=== PATIENT | female | born 1940 | race Caucasian/White ===

== ENCOUNTER 2018-11-10 09:51 | Inpatient (IN) ==
[2018-11-10] MEDS ORDERED: ASPIRIN PO ONE (10:00)
--- NOTE | 2018-11-10 10:10 | EKG Report ---
Test Performed on : 11/10/2018 09:59:53 AM Test Reason : chest pain Blood Pressure : / mmHG Vent. Rate : 067 BPM Atrial Rate : 067 BPM P-R Int : 162 ms QRS Dur : 086 ms QT Int : 398 ms P-R-T Axes : 018 017 048 degrees QTc Int : 420 ms Normal sinus rhythm. Normal ECG When compared with ECG of 06-AUG-2018 11:36, No significant change was found Unconfirmed Result
[2018-11-10 10:37] LABS: BASO# 0.11 X1000 (0.0-0.2); BASO% 1.2 % (0.0-0.8); EOS# 0.18 X1000 (0.0-0.7); EOS% 1.9 % (0.0-10.0); HEMATOCRIT 40.9 % (37.0-47.0); HEMOGLOBIN 13.6 g/dL (12.0-16.0); IMM GRAN# 0.02 X1000 (0.0-0.04); IMM GRAN% 0.2 % (0.0-0.5); LYMPH# 2.12 X1000 (1.2-3.4); LYMPH% 22.7 % (20.5-51.1); MCH 31.3 PG (27-31); MCHC 33.3 g/dL (33-37); MONO# 0.71 X1000 (0.11-0.59); MONO% 7.6 % (1.7-9.3); MPV 9.7 FL (7.4-10.4); NEUT# 6.19 X1000 (1.4-6.5); NEUT% 66.4 % (42.2-75.2); PLT 374 X1000 (130-400); RBC 4.35 XMIL (4.2-5.4); RDW 13.6 % (11.5-14.5); WBC 9.33 X1000 (4.8-10.8)
--- NOTE | 2018-11-10 10:38 | Diag Imaging Result Doc PS360 ---
CHEST-2 VIEWS - 11/10/2018 INDICATION: chest pain COMPARISON: 08/06/2018 FINDINGS: The lungs are normally expanded and clear. Heart size and mediastinal contours are normal. No pneumothorax or pleural effusion. There is a stable high-grade compression fracture at L1. IMPRESSION: No change from prior. Electronically signed by Abdiel Angel 11/10/2018 10:35 AM
[2018-11-10 10:40] LABS: INR 0.91
[2018-11-10 10:41] LABS: PTT 30.7 Seconds (22.3-41.8)
[2018-11-10 10:49] LABS: AGAP 10; ALB/GLOB RATIO 1.4; ALBUMIN 4.1 g/dL (3.5-5.0); ALKALINE PHOSPHATASE 81 U/L (32-104); BUN 20 mg/dL (8-22); CALCIUM 9.3 mg/dL (8.8-10.2); CHLORIDE 103 mmol/L (98-107); CK PROFILE 76 U/L (24-173); COSMO 286; CREATININE 0.7 mg/dL (0.5-0.9); ESTIMATED GFR > 60; GLUCOSE 100 mg/dL (70-104); GOT 17 U/L (10-30); GPT 13 U/L (10-36); POTASSIUM 4.6 mmol/L (3.5-5.1); SODIUM 142 mmol/L (136-145); TCO2 29 mmol/L (25-35); TOTAL BILIRUBIN 0.16 mg/dL (0.20-1.00)
[2018-11-10] MEDS ORDERED: ZOFRAN IV PRN (12:05)
--- NOTE | 2018-11-10 14:47 | HISTORY AND PHYSICAL ---
CHIEF COMPLAINT: Chest pain. HISTORY OF PRESENT ILLNESS: This is a 78-year-old female with a history of hypertension, gastroesophageal reflux disease, chronic back pain, and anxiety. She presented to the emergency room from her primary care provider Dr. Dash's office. The patient states that she was awaiting evaluation for routine appointment, and she had a "terrible headache." Shortly after, she felt anxious, she felt some like something was sitting on her chest. She noticed her respiratory rate was up. She got a little nauseated. At one time, she said she had diaphoresis, and another time during interview ,she stated that she did not . She states, " I have these spells when Im nervous and it depends on how nervous I am as to how long the spell lasts" . At the time of my interview, symptoms have resolved, and she feels that she is at her normal. PAST MEDICAL HISTORY: Gastroesophageal reflux disease, hypertension, anxiety, chronic back pain on chronic benzodiazepines, a left parietal meningioma that is being followed by Dr. Marshall in [place]. PAST SURGICAL HISTORY: Bladder tack, rectal prolapse repair, breast implants bilateral, hernia repair, hysterectomy, and colon resection. SOCIAL HISTORY: She smokes about half a pack a day. She denies alcohol or illicit drug use. ALLERGIES: No known drug allergies. HOME MEDICATIONS: A list will be obtained by the nursing staff, and once verified, we will review and restart as appropriate. REVIEW OF SYSTEMS: Discussed with patient with pertinent positives stated in the HPI. She denied any syncope or dizziness, any palpitations, any cough, fever, chills, night sweats, any recent weight loss or weight gain, any nausea/vomiting, diarrhea, constipation, any black or bloody vomitus or stools, hematuria, dysuria, frequency, urgency. PHYSICAL EXAMINATION: GENERAL: This is a 78-year-old female who is lying on the stretcher in the emergency room in no distress. VITAL SIGNS: Blood pressure is 128/69, heart rate of 70, respirations are 18, temperature is 97.6 degrees oral with room air saturations of 98%. EYES: Pupils are equal, round, and react to light .EOMs are intact. Sclerae are anicteric. HEENT: Head is normocephalic, atraumatic. Mucous membranes are moist. NECK: Supple with trachea midline. CARDIOVASCULAR: Regular rate and rhythm. S1 and S2 appreciated. No murmurs. EXTREMITIES: She has no lower extremity edema. Calves are nontender bilateral to palpation and peripheral pulses are palpable x4 extremities. PULMONARY: Breath sounds are clear with no increased work of breathing noted. Chest rises and falls symmetrically with respiration. Chest wall is nontender to palpation. GASTROINTESTINAL: Abdomen is soft, nontender, nondistended with bowel sounds in all 4 quadrants. GENITOURINARY: She has no CVA nor suprapubic tenderness. NEUROLOGIC: She is alert and oriented x3 with cranial nerves 2 through 12 grossly intact. SKIN: Warm and dry. DIAGNOSTIC STUDIES: WBC is 9.3 with hemoglobin 13.6, hematocrit 40.9, platelets of 374,000. Sodium is 142, potassium 4.6, BUN 20, creatinine 0.7 with a glucose of 100. Troponin was less than 0.010. EKG reveals normal sinus rhythm at a rate of [address]-T changes. Chest x-ray revealed lungs are normally expanded and clear. Heart size and mediastinal contours are normal. No pneumothorax or pleural effusion. There is a stable high-grade compression fracture at L1. ASSESSMENT AND PLAN: 1. Chest pressure. First troponin is negative. EKG is normal. We will continue to trend troponins, repeat EKGs, and rule out. She will be placed on telemetry. 2. Anxiety. We will identify her medications and continue these if appropriate. 3. Chronic back pain. She states she takes ibuprofen and gabapentin every 4 hours. We will verify her doses and continue as appropriate. 4. Gastroesophageal reflux disease. PPI. 5. Hypertension. Continue her home medications. 6. Left parietal meningioma with her last MRI being July 2018. She is being followed by Dr. Marshall in [place]. Further treatments pending hospital course. Dictated by CHEYENNE Land for Brenton Dubose MD cc: CHEYENNE Land Agree with the above. the following is my own face to face assessment. Patient with multiple episodes of anxiety, chest discomfort, and heart racing. initial cardiac eval unremarkable and symptoms consistent with panic attacks, but does endorse occasional palpitations. regular rate and rhythm at the time of my exam. will finish ruling out ACS with serial troponins. check thyroid studies. monitor on tele overnight in case she is going in and out of afib/flutter. likely discharge tomorrow if cardiac workup unremarkable. MTDD
[2018-11-10] MEDS ORDERED: MOTRIN PO PRN (15:34)
[2018-11-10] MEDS: ULTRAM PO PRN (15:42)
[2018-11-10 15:44] LABS: FREE T4 0.95 ng/dL (0.93-1.70); TSH 2.47 uIUmL (0.27-4.20)
[2018-11-10] MEDS: NS 1,000 ML IV SCH (15:46)
[2018-11-10] MEDS ORDERED: AMBIEN PO PRN (16:21)
[2018-11-10] MEDS ORDERED: TENORMIN PO PRN (16:21)
[2018-11-10] MEDS: NEURONTIN PO SCH ×2 (16:35→21:31)
[2018-11-10] MEDS ORDERED: PNEUMOVAX 23 IM ONE (17:30)
[2018-11-10 20:59] LABS: URINE SOURCE CLEAN CATCH
[2018-11-10 21:04] LABS: BILIRUBIN URINE NEGATIVE (NEGATIVE); BLOOD URINE TRACE (NEGATIVE); COLOR YELLOW; GLUCOSE URINE NEGATIVE (NEGATIVE); KETONE URINE NEGATIVE (NEGATIVE); LEUKOCYTES URINE LARGE (NEGATIVE); NITRITE URINE POSITIVE (NEGATIVE); PROTEIN URINE 30 mg/dL (NEGATIVE); TURBIDITY URINE HAZY (CLEAR); UR EPITHELIAL CELLS <10 /HPF (<10); URINE BACTERIA 4+ /HPF; URINE RBC <10 /HPF (<10); URINE WBC TNTC /HPF (<10); UROBILINOGEN URINE NORMAL (NORMAL)
[2018-11-10] MEDS: KLONOPIN PO SCH (21:31)
[2018-11-10] MEDS: ELAVIL PO SCH (21:32)
[2018-11-11] MEDS: ULTRAM PO PRN ×2 (03:34→08:09)
[2018-11-11] MEDS: NS 1,000 ML IV SCH ×2 (03:34→03:35)
[2018-11-11 07:02] LABS: BASO# 0.09 X1000 (0.0-0.2); BASO% 1.1 % (0.0-0.8); EOS# 0.37 X1000 (0.0-0.7); EOS% 4.3 % (0.0-10.0); HEMATOCRIT 42.3 % (37.0-47.0); HEMOGLOBIN 13.8 g/dL (12.0-16.0); IMM GRAN# 0.02 X1000 (0.0-0.04); IMM GRAN% 0.2 % (0.0-0.5); LYMPH# 2.33 X1000 (1.2-3.4); LYMPH% 27.2 % (20.5-51.1); MCH 31.1 PG (27-31); MCHC 32.6 g/dL (33-37); MCV 95.3 FL (81-99); MONO# 0.65 X1000 (0.11-0.59); MONO% 7.6 % (1.7-9.3); MPV 9.6 FL (7.4-10.4); NEUT# 5.11 X1000 (1.4-6.5); NEUT% 59.6 % (42.2-75.2); PLT 349 X1000 (130-400); RBC 4.44 XMIL (4.2-5.4); RDW 13.6 % (11.5-14.5); WBC 8.57 X1000 (4.8-10.8)
[2018-11-11 07:29] VITALS: BP 141/88
[2018-11-11] MEDS: ELAVIL PO SCH (08:07)
[2018-11-11] MEDS: KLONOPIN PO SCH (08:08)
[2018-11-11] MEDS: NEURONTIN PO SCH (08:08)
[2018-11-11 08:11] LABS: AGAP 9; ALB/GLOB RATIO 1.2; ALBUMIN 3.7 g/dL (3.5-5.0); ALKALINE PHOSPHATASE 76 U/L (32-104); BUN 19 mg/dL (8-22); CALCIUM 8.6 mg/dL (8.8-10.2); CHLORIDE 105 mmol/L (98-107); COSMO 283; CREATININE 0.5 mg/dL (0.5-0.9); ESTIMATED GFR > 60; GLUCOSE 123 mg/dL (70-104); GOT 15 U/L (10-30); GPT 12 U/L (10-36); POTASSIUM 3.7 mmol/L (3.5-5.1); SODIUM 140 mmol/L (136-145); TCO2 26 mmol/L (25-35); TOTAL BILIRUBIN 0.18 mg/dL (0.20-1.00); TOTAL PROTEIN 6.7 g/dL (6.3-8.3)
[2018-11-11] MEDS ORDERED: ZOLOFT PO SCH (09:00)
--- NOTE | 2018-11-12 06:19 | DISCHARGE SUMMARY ---
ADMISSION DATE: 11/10/2018 DISCHARGE DATE: 11/11/2018 DISCHARGE DISPOSITION: Home. DISCHARGE DIAGNOSES: 1. Panic attack. 2. Asymptomatic bacteriuria. 3. Anxiety. 4. Subjective feeling of shortness of breath and chest pain with headache on admission, likely because of anxiety. OTHER DIAGNOSES: 1. History of essential hypertension. 2. History of chronic gastroesophageal reflux disease. 3. History of chronic back pain. 4. History of anxiety and previous episode of panic attack. 5. History of left parietal meningioma followed by [facility]. VITALS: At the time of discharge temperature 98.1 degrees, pulse 79, respiratory rate 16, blood pressure 140/88, saturating 93% on room air. PHYSICAL EXAMINATION: General: Patient does not appear in any acute distress. HEENT: Oral cavity is moist. Chest: Air entry bilaterally equal. No wheeze, rhonchi, crackles. Cardiovascular: S1, S2 normal. No murmur or gallop. Bedside monitor has normal sinus rhythm. Abdomen: Soft, nontender. Extremities: No lower extremity edema. Neurologic: She is alert and oriented x3. Skin: She does have facial erythema from prior cosmetic surgery over her face. Psych: She does not appear anxious. She denies any more chest pain or shortness of breath or palpitation or diaphoresis or headache. SIGNIFICANT LABS: During hospitalization, her hemoglobin, hematocrit, blood count, WBC count and platelet have been within normal range. Coagulation, including INR and PTT, were within normal range. She had normal electrolytes with creatinine of 0.7, BUN of 20. Her troponin is an less than 0.010 three times. Her thyroid, including TSH, was within acceptable range. She does have pyuria with positive nitrites and large leukocytes. However, she did not have any symptoms of increased frequency or burning when I evaluated her. MICROBIOLOGY: Urine culture was pending significant. IMAGING: During hospital admission, chest x-ray did not have any pneumothorax or pleural effusion. There was compression fracture at L1 vertebra. EKG on admission had normal sinus rhythm. DISCHARGE MEDICATIONS: Zolpidem 10 mg at nighttime, desloratadine 5 mg daily, amitriptyline 75 mg b.i.d., cyclobenzaprine 10 mg daily, gabapentin 600 mg 4 times a day, clonazepam 1 mg b.i.d., ibuprofen 400 mg every 4 hours as needed, promethazine 25 mg p.o. q.6 hours as needed, atenolol 25 mg p.o. daily, sertraline 100 mg daily, Benadryl 25 mg q.4 to q.6 hours as needed for itching, tramadol 50 mg q.6 hours p.r.n. as needed for pain. HOSPITAL COURSE SUMMARY: Ms. Pool is a 78-year-old lady with past medical history of anxiety and chronic GERD who was in her primary care doctor's office for routine appointment. At that time, she started complaining of terrible headache and, after that, she had started feeling anxious and she felt that something was sitting on her chest and it was noted that her respiratory rate had also increased and she was a little nauseous. Though she did not have prior history of coronary artery disease, considering she has had these spells in the past associated with her anxiety, she was sent to emergency room. In the emergency room her vitals and blood tests were unremarkable. She was kept in the hospital overnight for telemetry monitoring. Her EKG and cardiac troponins were with normal sinus rhythm and were negative respectively. She did not have repetition of any such episodes overnight. At the time of discharge, she did not have headache, diaphoresis, palpitations or chest pain and she was deemed appropriate for discharge. At the time of discharge, she was provided instructions about panic attack. She was informed that her cardiac workup preliminarily was negative and she should follow up with the regular doctor. She was also advised to discuss with the regular doctor about proper medication reconciliation and discussed about medication interaction. All of her questions have been answered. TIME SPENT: More than 30 minutes were spent in discharging the patient. cc: Keron Saxena MD
--- NOTE | 2018-11-15 11:07 | PROVIDER DOCUMENTATION ---
This chart was entered by Staci Gerardo Scribe, acting as scribe for Yasir Noland MD. HPI-Chest Pain - General Chief Complaint: Chest Pain Stated Complaint: CHEST PAIN Time Seen by Provider: 11/10/18 10:04 Source: patient Allergies/Adverse Reactions: Patient Allergies Allergy/AdvReac Type Severity Reaction Status Date / Time No Known Allergies Allergy Verified 03/21/18 03:09 Home Medications: Home Medication List Medication Instructions Recorded Confirmed Last Taken Type Amitriptyline [Elavil] 75 mg PO BID 06/21/13 11/10/18 11/10/18 09:00 History Desloratadine [Clarinex] 5 mg PO DAILY 06/21/13 11/10/18 11/10/18 09:00 History Atenolol [Tenormin] 25 mg PO DAILY PRN 06/27/13 11/10/18 11/10/18 09:00 History Clonazepam [Klonopin] 1 mg PO BID 06/27/13 11/10/18 11/10/18 09:00 History Cyclobenzaprine HCl [Flexeril] 10 mg PO DAILY 06/27/13 11/10/18 11/10/18 09:00 History Sertraline HCl [Zoloft] 100 mg PO DAILY 06/27/13 11/10/18 11/10/18 09:00 History Diphenhydramine [Benadryl] 25 mg PO Q4-6H PRN PRN #0 capsule 06/28/13 11/10/18 11/10/18 09:00 Rx Promethazine [Phenergan] 25 mg PO Q6H PRN PRN 10/28/13 11/10/18 03/20/18 History Zolpidem [Ambien] 10 mg PO HS 10/28/13 11/10/18 11/09/18 21:00 History Tramadol [Ultram] 50 mg PO Q6H PRN PRN #14 tab 03/21/18 11/10/18 Unknown Rx Gabapentin 600 mg PO 4XDAY 11/10/18 11/10/18 11/10/18 09:00 History Ibuprofen [Motrin] 400 mg PO Q4H PRN PRN 11/10/18 11/10/18 11/10/18 09:00 History - History of Present Illness-CP Nature of Presenting Problem: Patient is a 78 year old female who presents to the ED with chest pain, shortness of breath, and headache that started this morning while at her PCP's office. Denies nausea, vomiting and fever. Reports having prior episodes of similar symptoms. Patient states shortness of breath has resolved currently. Patient does not report history of CVA. Patient also does not report weakness, numbness or paresthesia. Location: reports: central Chest Pain Radiation: reports: no radiation Quality of Pain: reports: aching Severity in ED: mild Onset/Duration: this morning Timing: still present Context/Activities at Onset: reports: light activity Modifying Factors: improves with: nothing Associated Symptoms: reports: headache, shortness of breath Nitro Today/Relief: no nitro taken today Aspirin Treatment Today: no aspirin today Similar Symptoms Previously?: Yes Recently Seen Here or By Another Healthcare Provider: Yes Review of Systems - Adult - REVIEW OF SYSTEMS - ADULT Constitutional: reports: no symptoms reported. denies: chills, fever, fatique Eyes: reports: no symptoms reported Ears, Nose, Mouth & Throat: reports: no symptoms reported Cardiovascular: reports: see HPI, chest pain. denies: heart murmur, irregular heart rate Respiratory: reports: see HPI, cough. denies: shortness of breath, wheezing Gastrointestinal: reports: no symptoms reported. denies: abdominal pain, nausea, vomiting Genitourinary: reports: no symptoms reported Musculoskeletal: reports: no symptoms reported Integumentary: reports: no symptoms reported Neurological: reports: see HPI, headache/migraines (ECKERT). denies: dizziness/vertigo, numbness, seizure, syncope Psychiatric: reports: no symptoms reported Endocrine: reports: no symptoms reported Hematologic/Lymphatic: reports: no symptoms reported Allergic/Immunologic: reports: no symptoms reported All Other Systems: Reviewed and Negative Past History - Adult - PAST MEDICAL HISTORY-ADULT Review of Records: reports: Nursing Assessment Review, Medications Reviewed, Social history reviewed & non-contributory. Major Childhood Illnesses: reports: denies history Cardiovascular: reports: HTN, hyperlipidemia Respiratory: reports: denies history Gastrointestinal: reports: GERD Obstetrical/Gynecological: reports: denies history Genitourinary: reports: denies history Musculoskeletal: reports: denies history Neurological: reports: denies history Psychiatric: reports: anxiety Endocrine/Immune: reports: denies history Other Conditions: reports: denies history - PRIOR SURGERIES/PROCEDURES Surgical/Procedure History: reports: hysterectomy, hernia repair, breast, other (bladder) - IMMUNIZATION STATUS Childhood Immunizations: See Nurse Assessment Flu Vaccine: See Nurse Assessment - FAMILY HISTORY Family History: reviewed, not pertinent - SOCIAL HISTORY Smoking: cigarettes, less than 1 pack/day Provider spent 3-5 mins advising pt. on dangers of tobacco.: Discussed manners to quit use, and f/u contacts for add'l counseling. Substance Use: denies Living Situation: family Physical Exam-General - PHYSICAL EXAM-ADULT Initial Vital Signs Reviewed: Yes - CONSTITUTIONAL General Appearance: alert, no apparent distress. negative: lethargic, slow to respond - RESPIRATORY Respiratory: chest non-tender, lungs clear, normal breath sounds. negative: crackles, stridor - CARDIOVASCULAR Cardiovascular: normal peripheral pulses, regular rate, rhythm. negative: tachycardia, systolic murmur - MUSCULOSKELETAL Extremity: non-tender, normal inspection. negative: deformity, erythema - SKIN Integumentary: normal color, normal turgor, warm/dry. negative: ecchymosis, erythema - NEUROLOGIC Neurologic: facial droop (left), motor weakness (LUE and LLE) - PSYCHIATRIC Psych/Mental Status: normal mood/affect, oriented x 3 Progress - PLAN OF CARE/RESULTS Progress/Plan/Lab Results: Orders Category Date Time Status Admit [facility] Routine AdmDCTranf 11/10/18 11:54 Active Activity - Bed Rest with BRP ORDERED Care 11/10/18 11:54 Active Cardiac Monitoring DIRECTED Care 11/10/18 10:00 Completed Intake and Output-Strict ORDERED Care 11/10/18 11:54 Active Oxygen Therapy- ED Nursing DIRECTED Care 11/10/18 10:00 Active Saline Loc NOW Care 11/10/18 10:00 Active Vital Signs Order Q 8-HR ASSESS Care 11/10/18 11:54 Active Z-Document. for Tele Applied ORDERED Care 11/10/18 11:55 Completed Regular Diet Diet 11/10/18 11:55 Completed CHEST-2 VIEWS [RAD] Stat Exams 11/10/18 10:00 Completed CBC WITH DIFF [HEME] Routine Lab 11/11/18 06:24 Completed CBC WITH ELECTRONIC DIFF [HEME] Stat Lab 11/10/18 10:23 Completed CK PROFILE [SP CHEM] Q6H Lab 11/10/18 16:04 Completed CK PROFILE [SP CHEM] Q6H Lab 11/10/18 23:20 Completed CK PROFILE [SP CHEM] Stat Lab 11/10/18 10:23 Completed COMPREHENSIVE METABOLIC PANEL [CHEM] Routine Lab 11/11/18 06:24 Completed COMPREHENSIVE METABOLIC PANEL [CHEM] Stat Lab 11/10/18 10:23 Completed PRO B-NATRIURETIC PEPTIDE Stat Lab 11/10/18 10:23 Completed PROTIME WITH INR [COAG] Stat Lab 11/10/18 10:23 Completed PTT [COAG] Stat Lab 11/10/18 10:23 Completed TROPONIN T Q6H Lab 11/10/18 16:04 Completed TROPONIN T Q6H Lab 11/10/18 23:20 Completed TROPONIN T Stat Lab 11/10/18 10:23 Completed 0.9% Sodium Chloride Inj [Ns] 1,000 ml Med 11/10/18 12:15 Discontinued IV 75 mls/hr Aspirin Med 11/10/18 10:00 Discontinued 325 mg PO NOW ONE Ondansetron [Zofran] Med 11/10/18 12:05 Discontinued 4 mg IV Q4H PRN PRN CP/SOB/Palp >45 yrs of Age Stat Oth 11/10/18 10:00 Ordered Telemetry [OM.EQ] Routine Oth 11/10/18 11:54 Active EKG [EKG] Stat Ther 11/10/18 10:00 Draft Transfer/Admit Order [TRANSFER] Routine Transfer 11/10/18 12:12 Completed Result Diagrams: 11/11/18 06:24 11/11/18 06:24 - REASSESSMENT Reassessment #1 Time Reassessed: 11:34 Status: improving (patient states all symptoms have resolved.) - EKG 1 Time of EKG reading by physician:: 09:59 EKG Read and Signed by:: Yasir Noland EKG Interpretation (*Must complete 3 of following elements*): Normal Rate: 67 Rhythm: normal sinus rhythm [place]: normal QRS: normal [place] Interval: normal ST Wave: normal Comments: normal ECG - XRAY 1 XRAY Study: Chest Impression: See EMR Report (CHEST-2 VIEWS - 11/10/2018 INDICATION: chest pain COMPARISON: 08/06/2018 FINDINGS: The lungs are normally expanded and clear. Heart size and mediastinal contours are normal. No pneumothorax or pleural effusion. There is a stable high-grade compression fracture at L1. IMPRESSION: No change from prior. Electronically signed by Abdiel Angel 11/10/2018 10:35 AM 11/10/18 1035 Interpreting Physician: Abdiel Angel MD Dictated Date/Time: 11/10/18 1032 cc: Yasir Noland MD; Agustina Dash MD) - CONSULTS/PCP/HOSPITALIST Notification #1 *Consult/PCP/Hospitalist*: Dr. Dash Time Discussed: 10:46 Reason/Comments: Dr. Noland consulted with Dr. Dash about patient. Consult Disposition: other (Dr. Dash states patient does not have a history of CVA but has had multiple plastic surgeries and the facial droop is chronic.) #2 Consult: CHEYENNE Lindsay for Hospitalist Time Discussed: 11:32 Reason/Comments: Dr. Noland consulted with Angélica about patient. Consult Disposition: Will see in ED, Admit Departure - Departure Date of Disposition Decision: 11/10/18 Time of Disposition Decision: 11:32 DIAGNOSIS: Chest pain Qualifiers: Chest pain type: unspecified Qualified Code(s): R07.9 - Chest pain, unspecified Disposition: ADMITTED INPATIENT 09 Certified Medical Emergency: Emergent Condition: Stable - Critical Care Note This patient required my direct & personal management of CC.: No Attestation - Physician/ MINERVA Attestation The physician spent face to face time with patient:: Yes Advanced Practice Provider documentation review:: Supervising physician onsite and consulted in the evaluation and care of this patient. The physician did have a face to face encounter with the patient. This chart was documented by the indicated scribe, (Staci Gerardo Scribe) and accurately reflects the services I performed and decisions made by me, Yasir Noland MD, as attested by the provider's signature.
== END 2018-11-11 08:59 | disposition home or self-care (01) | DRG 880 ==
LOC: ED 09:51 → SUATTDRO 13:34 → 4N 13:34
PROVIDERS: ATTEND Internal Medicine
CPT/HCPCS: 71020; 71046; 80053; 81001; 82550; 83880; 84439; 84443; 84484; 85025; 85610; 85730; 87077; 87088; 87186; 90732; 93005; 99284; A9270; J7030

== ENCOUNTER 2019-05-15 14:03 | Inpatient (IN) ==
--- NOTE | 2019-05-15 14:35 | PROVIDER DOCUMENTATION ---
HPI-General Adult - General Chief Complaint: Chest Pain Stated Complaint: CP L ARM PAIN Time Seen by Provider: 05/15/19 14:24 Source: patient, family ( present at bedside) Allergies/Adverse Reactions: Patient Allergies Allergy/AdvReac Type Severity Reaction Status Date / Time No Known Allergies Allergy Verified 03/21/18 03:09 Home Medications: Home Medication List Medication Instructions Recorded Confirmed Last Taken Type Amitriptyline [Elavil] 75 mg PO BID 06/21/13 11/10/18 11/10/18 09:00 History Desloratadine [Clarinex] 5 mg PO DAILY 06/21/13 11/10/18 11/10/18 09:00 History Atenolol [Tenormin] 25 mg PO DAILY PRN 06/27/13 11/10/18 11/10/18 09:00 History Clonazepam [Klonopin] 1 mg PO BID 06/27/13 11/10/18 11/10/18 09:00 History Cyclobenzaprine HCl [Flexeril] 10 mg PO DAILY 06/27/13 11/10/18 11/10/18 09:00 History Sertraline HCl [Zoloft] 100 mg PO DAILY 06/27/13 11/10/18 11/10/18 09:00 History Diphenhydramine [Benadryl] 25 mg PO Q4-6H PRN PRN #0 capsule 06/28/13 11/10/18 11/10/18 09:00 Rx Promethazine [Phenergan] 25 mg PO Q6H PRN PRN 10/28/13 11/10/18 03/20/18 History Zolpidem [Ambien] 10 mg PO HS 10/28/13 11/10/18 11/09/18 21:00 History Tramadol [Ultram] 50 mg PO Q6H PRN PRN #14 tab 03/21/18 11/10/18 Unknown Rx Gabapentin 600 mg PO 4XDAY 11/10/18 11/10/18 11/10/18 09:00 History Ibuprofen [Motrin] 400 mg PO Q4H PRN PRN 11/10/18 11/10/18 11/10/18 09:00 History - History of Present Illness -Gen Adult Nature of Presenting Problems: 78 YO F pmh for GERD presents with episode of chest pain that was left sided and radiating inward that occurred earlier this morning. Pt states she took an ibuprofen and is now having pain in her upper sternum area. She has a hx of GERD and chronic back pain for which she takes 200mg ibuprofen 4x per day and gabapentin and has been doing so for the past year. She denies any vomiting blood. The original chest pain has resolved, but she is complaining of the pain in her throat currently. She denies hx of [place] but is currently still smoking. Pain Radiation: reports: chest Quality of Pain: reports: aching, stabbing Onset/Duration: reports: 4-6 hours ago Timing: reports: still present, improving Context/Activities at Onset: reports: none Modifying Factors: improves with: nothing Similar Symptoms Previously?: No Recently seen or treated by another doctor?: No Review of Systems - Adult - REVIEW OF SYSTEMS - ADULT Constitutional: denies: chills, fever Eyes: reports: no symptoms reported Ears, Nose, Mouth & Throat: reports: no symptoms reported Cardiovascular: reports: no symptoms reported Respiratory: reports: cough, shortness of breath. denies: wheezing Gastrointestinal: reports: abdominal pain, nausea Genitourinary: reports: no symptoms reported Musculoskeletal: reports: no symptoms reported Integumentary: reports: no symptoms reported Neurological: reports: no symptoms reported Psychiatric: reports: no symptoms reported Past History - Adult - PAST MEDICAL HISTORY-ADULT Review of Records: reports: Old Records Reviewed, Medications Reviewed Major Childhood Illnesses: reports: denies history Cardiovascular: reports: A-Fib, HTN, hyperlipidemia Respiratory: reports: denies history Gastrointestinal: reports: GERD Obstetrical/Gynecological: reports: denies history Genitourinary: reports: denies history Musculoskeletal: reports: denies history Neurological: reports: denies history Psychiatric: reports: anxiety Endocrine/Immune: reports: denies history Other Conditions: reports: denies history - PRIOR SURGERIES/PROCEDURES Surgical/Procedure History: reports: hysterectomy, hernia repair, breast, other (bladder) - IMMUNIZATION STATUS Childhood Immunizations: See Nurse Assessment Flu Vaccine: See Nurse Assessment - FAMILY HISTORY Family History: reviewed, not pertinent - SOCIAL HISTORY Smoking: cigarettes Substance Use: denies Living Situation: family Physical Exam-General - PHYSICAL EXAM-ADULT Initial Vital Signs Reviewed: Yes - CONSTITUTIONAL General Appearance: appears well, alert - EYES Eyes: PERRL/EOMI - HEAD, EARS, NOSE, MOUTH & THROAT HENMT: normocephalic/atraumatic, moist mucous membranes - NECK Neck: supple - RESPIRATORY Respiratory: lungs clear, normal breath sounds - CARDIOVASCULAR Cardiovascular: regular rate, rhythm (HR at 90 on exam) - GASTROINTESTINAL (ABDOMEN) Abdominal Exam: non tender, soft - MUSCULOSKELETAL Extremity: normal range of motion, normal gait - SKIN Integumentary: normal color, normal turgor, warm/dry - NEUROLOGIC Neurologic: grossly normal - PSYCHIATRIC Psych/Mental Status: normal mood/affect, oriented x 3 Progress - PLAN OF CARE/RESULTS Progress/Plan/Lab Results: Vital Signs - 8 hr 05/15/19 14:04 Temperature 98.6 F Pulse Rate 100 H Respiratory Rate 20 Blood Pressure 126/82 O2 Sat by Pulse Oximetry 92 L Orders Category Date Time Status Saline Loc NOW Care 05/15/19 14:31 Active CHEST-2 VIEWS [RAD] Stat Exams 05/15/19 14:32 Ordered CBC WITH ELECTRONIC DIFF [HEME] Stat Lab 05/15/19 14:31 Uncollected CK PROFILE [SP CHEM] Stat Lab 05/15/19 14:31 Ordered COMPREHENSIVE METABOLIC PANEL [CHEM] Stat Lab 05/15/19 14:31 Uncollected PRO B-NATRIURETIC PEPTIDE Stat Lab 05/15/19 14:32 Ordered PROTIME WITH INR [COAG] Stat Lab 05/15/19 14:32 Ordered PTT [COAG] Stat Lab 05/15/19 14:32 Ordered TROPONIN T Stat Lab 05/15/19 14:32 Ordered TSH Stat Lab 05/15/19 14:32 Uncollected EKG [EKG] Stat Ther 05/15/19 14:31 Ordered positive UA, and CXR showing pna. pt with chest pain most likely related to pna. not currently concerned for sepsis or coronary event. elevated WBC, but negative cardiac enzymes and EKG. IV abx to treat for UTI and pna. pt up for admission. Negative flu. Result Diagrams: 05/15/19 14:55 05/15/19 14:55 - EKG 1 Time of EKG reading by physician:: 15:15 EKG Read and Signed by:: Harley Mendez EKG Interpretation (*Must complete 3 of following elements*): Abnormal Rate: 97 Rhythm: A fib [place]: normal QRS: normal Prior EKG Comparison: changes noted (from 11/11/18) - XRAY 1 XRAY Study: Chest Impression: See EMR Report (EXAM: CHEST-2 VIEWS 05/15/2019 HISTORY: CP TECHNIQUE: PA and lateral chest COMMENT: There is atelectasis or pneumonia in the right middle lobe. This is slightly worse than on 11/10/2018. Otherwise are has been no significant change. IMPRESSION: Right middle lobe atelectasis versus pneumonia. Electronically signed by Eduin Erazo 05/15/2019 3:15 PM) - CONSULTS/PCP/HOSPITALIST Notification #1 *Consult/PCP/Hospitalist*: Angélica Time Discussed: 17:18 Consult Disposition: Will see in ED Departure - Departure Date of Disposition Decision: 05/15/19 Time of Disposition Decision: 17:18 DIAGNOSIS: Pneumonia, Urinary tract infection Disposition: ADMITTED INPATIENT 09 Certified Medical Emergency: Emergent Condition: Stable Referrals and Follow-Ups: Agustina Dash MD [Primary Care Provider] - - Critical Care Note This patient required my direct & personal management of CC.: No Attestation - Physician/ MINERVA Attestation The physician spent face to face time with patient:: Yes Advanced Practice Provider documentation review:: Supervising physician onsite and consulted in the evaluation and care of this patient. The physician did have a face to face encounter with the patient.
[2019-05-15 15:11] LABS: BASO# 0.07 X1000 (0.0-0.2); BASO% 0.4 % (0.0-0.8); EOS# 0.24 X1000 (0.0-0.7); EOS% 1.5 % (0.0-10.0); HEMOGLOBIN 13.9 g/dL (12.0-16.0); IMM GRAN# 0.05 X1000 (0.0-0.04); IMM GRAN% 0.3 % (0.0-0.5); LYMPH% 11.8 % (20.5-51.1); MCH 31.5 PG (27-31); MCHC 32.3 g/dL (33-37); MCV 97.5 FL (81-99); MONO% 8.1 % (1.7-9.3); MPV 9.3 FL (7.4-10.4); NEUT# 12.48 X1000 (1.4-6.5); NEUT% 77.9 % (42.2-75.2); PLT 361 X1000 (130-400); RBC 4.41 XMIL (4.2-5.4); RDW 13.6 % (11.5-14.5); WBC 16.04 X1000 (4.8-10.8)
[2019-05-15 15:17] LABS: INR 0.93; PROTIME 12.6 Seconds (11.0-16.0)
--- NOTE | 2019-05-15 15:17 | Diag Imaging Result Doc PS360 ---
EXAM: CHEST-2 VIEWS 05/15/2019 HISTORY: CP TECHNIQUE: PA and lateral chest COMMENT: There is atelectasis or pneumonia in the right middle lobe. This is slightly worse than on 11/10/2018. Otherwise are has been no significant change. IMPRESSION: Right middle lobe atelectasis versus pneumonia. Electronically signed by Eduin Erazo 05/15/2019 3:15 PM
[2019-05-15 15:18] LABS: PTT 28.8 Seconds (22.3-41.8)
[2019-05-15 15:53] LABS: AGAP 13; ALB/GLOB RATIO 1.8; ALBUMIN 4.2 g/dL (3.5-5.0); ALKALINE PHOSPHATASE 79 U/L (32-104); BUN 12 mg/dL (8-22); CHLORIDE 102 mmol/L (98-107); COSMO 288; CREATININE 0.6 mg/dL (0.5-0.9); ESTIMATED GFR > 60; GLUCOSE 149 mg/dL (70-104); GOT 16 U/L (10-30); GPT 12 U/L (10-36); POTASSIUM 3.5 mmol/L (3.5-5.1); SODIUM 143 mmol/L (136-145); TCO2 28 mmol/L (25-35); TOTAL BILIRUBIN 0.15 mg/dL (0.20-1.00); TOTAL PROTEIN 6.6 g/dL (6.3-8.3)
[2019-05-15] MEDS ORDERED: NS 1,000 ML IV ONE (16:04)
[2019-05-15] MEDS ORDERED: ROBITUSSIN PO ONE ×2 (16:07→17:00)
[2019-05-15] MEDS ORDERED: G.I. COCKTAIL PO ONE (16:07)
[2019-05-15 16:31] LABS: URINE SOURCE CLEAN CATCH
[2019-05-15 16:39] LABS: BILIRUBIN URINE NEGATIVE (NEGATIVE); BLOOD URINE SMALL (NEGATIVE); COLOR YELLOW; GLUCOSE URINE NEGATIVE (NEGATIVE); KETONE URINE NEGATIVE (NEGATIVE); LEUKOCYTES URINE MODERATE (NEGATIVE); NITRITE URINE NEGATIVE (NEGATIVE); PROTEIN URINE TRACE mg/dL (NEGATIVE); SP GRAVITY URINE 1.026; TURBIDITY URINE CLEAR (CLEAR); UROBILINOGEN URINE NORMAL (NORMAL)
[2019-05-15 16:40] LABS: UR EPITHELIAL CELLS <10 /HPF (<10); URINE BACTERIA NEGATIVE /HPF; URINE RBC <10 /HPF (<10); URINE WBC TNTC /HPF (<10)
[2019-05-15] MEDS: ROCEPHIN 1 GM in NS 50 ML IV ONE ×2 (16:51→17:16)
--- NOTE | 2019-05-15 17:41 | EKG Report ---
Test Performed on : 05/15/2019 3:13:13 PM Test Reason : CP Blood Pressure : / mmHG Vent. Rate : 097 BPM Atrial Rate : 104 BPM P-R Int : 000 ms QRS Dur : 084 ms QT Int : 350 ms P-R-T Axes : 000 029 062 degrees QTc Int : 444 ms Atrial fibrillation. with a competing junctional pacemaker. Abnormal ECG When compared with ECG of 10-NOV-2018 09:59, Atrial fibrillation. has replaced Sinus rhythm. Unconfirmed Result
[2019-05-15] MEDS ORDERED: ROBITUSSIN-AC PO PRN (17:52)
[2019-05-15] MEDS ORDERED: DUONEB (A & A) INH PRN (17:59)
[2019-05-15] MEDS ORDERED: TENORMIN PO PRN (18:00)
[2019-05-15] MEDS: ROCEPHIN 1 GM in NS 50 ML IV SCH (18:00)
--- NOTE | 2019-05-15 18:35 | HISTORY AND PHYSICAL ---
PRIMARY CARE PHYSICIAN: Dr. Agustina Dash. CHIEF COMPLAINT: Chest discomfort. HISTORY OF PRESENT ILLNESS: This is a 78-year-old female with a past medical history of gastroesophageal reflux disease and hypertension, who presented to the emergency department complaining of chest discomfort. Patient reports that she has sporadic cough. I think this is a cough of a smoker. She continues to smoke a half a pack per day for more than 50 years. She reports that she noticed shortness of breath for the last couple of days and cough that was getting worse today, as well as some lung secretions that she said that she was not able to move out. She denies any fever. She reports some shortness of breath that also lasted today. She tried some ibuprofen that she takes normally for back pain but she did not find any major relief, so she decided to come to the emergency department. Upon ER evaluation, she was found to have a right middle lobe pneumonia. There is elevation of the white count, although the patient is afebrile. So we will admit this patient for further evaluation and treatment. PAST MEDICAL HISTORY: 1. Gastroesophageal reflux disease. 2. Hypertension. 3. Anxiety and depression disorder. 4. Chronic back pain, on chronic benzodiazepine and muscle relaxants. 5. Left parietal meningioma. Patient is being followed by Dr. Marshall in [place]. PAST SURGICAL HISTORY: 1. Colon resection. 2. Hysterectomy. 3. Hernia repair. 4. Breast implants bilaterally. 5. Rectal prolapse repair. 6. Bladder tack. SOCIAL HISTORY: The patient continues to smoke a half a pack per day. She denies drinking any alcohol or using illicit drugs. ALLERGIES: No known drug allergies. Review of systems: Eleven systems were reviewed and all symptoms are related to the HPI. PHYSICAL EXAMINATION: VITAL SIGNS: Temperature 98.6 degrees, heart rate 100, respiratory rate 20, blood pressure 126/82, O2 saturation 92% on room air. GENERAL: This is an 88-year-old female lying in bed, in no acute distress. HEENT: Head is normocephalic, atraumatic. Pupils equal, round, reactive to light and accommodation. Anicteric sclerae. Normal conjunctivae. NECK: No JVD noted. No carotid bruits. No lymphadenopathy. No thyromegaly. CARDIOVASCULAR: S1, S2 heart. No murmurs, gallops, or rubs. Regular rate and rhythm. RESPIRATORY: Clear bilaterally to auscultation. No work of breathing or using accessory muscles. ABDOMEN: Soft. Nontender to palpation. Bowel sounds present. No organomegaly. EXTREMITIES: No clubbing, cyanosis, or edema. Peripheral pulses present in both legs. NEUROLOGICAL: The patient is alert and oriented x3. Moves 4 extremities. LABORATORY DATA: White cell count 16.04, hemoglobin 13.9, hematocrit 29.3, platelets 361,000. BMP unremarkable. Total bilirubin mildly elevated at 0.15. Glucose 149. The urinalysis showed too numerous to count white cell count but nitrates negative. ASSESSMENT AND PLAN: 1. Acute respiratory failure secondary to right middle lobe pneumonia. We will start ceftriaxone and azithromycin for this community-acquired pneumonia. We will provide breathing treatments for shortness of breath. We will use DuoNeb because this patient most likely should have subclinical COPD considering her longstanding history of smoking. Actually because of that history of smoking and to have a better visualization of the lung anatomy, I prefer to go ahead and order a CT of the chest with contrast. 2. Hypertension. We will continue with home medications, in this case atenolol. 3. Anxiety/depression disorder. We will continue with home medications. 4. Chronic back pain. The patient takes ibuprofen on a daily basis as well as tramadol. Will use tramadol as needed only here. 5. Disposition. We will continue to monitor this patient closely. cc: Mohsen France MD MTDD
[2019-05-15] MEDS: NEURONTIN PO SCH (20:09)
[2019-05-15] MEDS: ULTRAM PO PRN (20:10)
[2019-05-15] MEDS: NS 1,000 ML IV SCH (20:11)
--- NOTE | 2019-05-15 20:15 | Diag Imaging Result Doc PS360 ---
EXAM: CT THORAX W/CONTRAST HISTORY: pneumonia TECHNIQUE: CT chest with intravenous contrast COMPARISON: None. FINDINGS: There are breast implants. No pleural effusions. No cardiomegaly. No aortic aneurysm or dissection. No large central pulmonary emboli. There are calcified mediastinal and hilar nodes with scattered granuloma. There are several tiny nodular densities which are not clearly calcified. Increased markings anteriorly in the right middle lobe. Mild associated bronchiectasis. IMPRESSION: 1.There is evidence of a prior granulomatous infection 2.Scarring versus small infiltrate in the right middle lobe inferiorly This exam was performed using automated exposure control, adjustment of mA or kV according to patient size, and/or use of iterative reconstruction technique. Electronically signed by Jorge Avelar 05/15/2019 8:13 PM
[2019-05-15] MEDS: ZITHROMAX PO SCH (21:18)
[2019-05-15] MEDS: ELAVIL PO SCH (21:19)
[2019-05-15] MEDS: KLONOPIN PO SCH (21:19)
[2019-05-15] MEDS: AMBIEN PO SCH (21:20)
[2019-05-15] MEDS: DUONEB (A & A) INH SCH (23:53)
[2019-05-16] MEDS: NS 1,000 ML IV SCH ×3 (03:19→20:25)
[2019-05-16] MEDS: DUONEB (A & A) INH SCH ×6 (03:45→22:44)
[2019-05-16] MEDS: PRILOSEC PO SCH (06:07)
[2019-05-16 07:35] LABS: BASO# 0.08 X1000 (0.0-0.2); BASO% 0.6 % (0.0-0.8); EOS# 0.32 X1000 (0.0-0.7); EOS% 2.3 % (0.0-10.0); HEMATOCRIT 39.7 % (37.0-47.0); HEMOGLOBIN 12.4 g/dL (12.0-16.0); IMM GRAN# 0.04 X1000 (0.0-0.04); IMM GRAN% 0.3 % (0.0-0.5); LYMPH# 2.31 X1000 (1.2-3.4); LYMPH% 16.4 % (20.5-51.1); MCH 31.3 PG (27-31); MCHC 31.2 g/dL (33-37); MCV 100.3 FL (81-99); MONO# 1.12 X1000 (0.11-0.59); MPV 9.6 FL (7.4-10.4); NEUT# 10.19 X1000 (1.4-6.5); NEUT% 72.4 % (42.2-75.2); PLT 314 X1000 (130-400); RBC 3.96 XMIL (4.2-5.4); RDW 13.7 % (11.5-14.5); WBC 14.06 X1000 (4.8-10.8)
[2019-05-16 08:06] LABS: AGAP 14; ALB/GLOB RATIO 1.7; ALKALINE PHOSPHATASE 74 U/L (32-104); BUN 16 mg/dL (8-22); CALCIUM 8.8 mg/dL (8.8-10.2); CHLORIDE 104 mmol/L (98-107); COSMO 289; CREATININE 0.5 mg/dL (0.5-0.9); ESTIMATED GFR > 60; GLUCOSE 124 mg/dL (70-104); GOT 15 U/L (10-30); GPT 10 U/L (10-36); POTASSIUM 3.9 mmol/L (3.5-5.1); SODIUM 144 mmol/L (136-145); TCO2 26 mmol/L (25-35); TOTAL BILIRUBIN 0.17 mg/dL (0.20-1.00); TOTAL PROTEIN 6.3 g/dL (6.3-8.3)
[2019-05-16] MEDS: ULTRAM PO PRN ×2 (09:15→15:26)
[2019-05-16] MEDS: FLEXERIL PO SCH (09:16)
[2019-05-16] MEDS: ELAVIL PO SCH ×2 (09:16→20:24)
[2019-05-16] MEDS: KLONOPIN PO SCH ×2 (09:16→20:23)
[2019-05-16] MEDS: LOVENOX SUBQ SCH (09:16)
[2019-05-16] MEDS: NEURONTIN PO SCH ×4 (09:17→20:23)
[2019-05-16] MEDS: ZITHROMAX PO SCH (09:17)
[2019-05-16] MEDS: ZOLOFT PO SCH (09:17)
[2019-05-16] MEDS: ROCEPHIN 1 GM in NS 50 ML IV SCH (17:05)
--- NOTE | 2019-05-16 18:48 | PROGRESS NOTE ---
DATE: 05/16/2019 SUBJECTIVE: She has no major complaints. OBJECTIVE: Vital signs: Blood pressure is 158/68, heart rate of 80, respiratory rate 16, temperature 98.9 degrees, 91% on 2 L. Cardiovascular: Regular rate and rhythm. Pulmonary: Bilateral breath sounds clear to auscultation. Gastrointestinal: Soft, nontender, nondistended. Bowel sounds are positive. LABORATORY DATA: White count 14, hemoglobin and hematocrit 12 and 39, platelets 314,000. Basic was normal. PROBLEM LIST: 1. Respiratory failure, right middle lobe pneumonia. She is on Rocephin and azithromycin. I am not sure she is on oxygen. I get a sense she is not, but she does seem to be requiring oxygen. Her saturations are 91% on room air or 2 L. With the documentation, I am not completely clear, but she may need home oxygen so I am going to order a home O2 evaluation. 2. Asymptomatic bacteriuria. She denies dysuria. Her urine culture is positive so we will continue to monitor. Chest CT shows right middle lobe infiltrate but nothing really that impression. DISPOSITION: Possibly home tomorrow pending clinical status on antibiotics. We will continue to follow. cc: Sumit Merino MD
[2019-05-16] MEDS: AMBIEN PO SCH (20:23)
[2019-05-17] MEDS: DUONEB (A & A) INH SCH ×4 (03:18→15:21)
[2019-05-17] MEDS: PRILOSEC PO SCH (06:05)
[2019-05-17 07:00] LABS: BASO# 0.06 X1000 (0.0-0.2); BASO% 0.4 % (0.0-0.8); EOS# 0.33 X1000 (0.0-0.7); EOS% 2.4 % (0.0-10.0); HEMATOCRIT 37.2 % (37.0-47.0); HEMOGLOBIN 11.9 g/dL (12.0-16.0); IMM GRAN# 0.04 X1000 (0.0-0.04); IMM GRAN% 0.3 % (0.0-0.5); LYMPH# 1.84 X1000 (1.2-3.4); LYMPH% 13.2 % (20.5-51.1); MCH 31.4 PG (27-31); MCV 98.2 FL (81-99); MONO% 9.4 % (1.7-9.3); MPV 9.4 FL (7.4-10.4); NEUT# 10.33 X1000 (1.4-6.5); NEUT% 74.3 % (42.2-75.2); PLT 303 X1000 (130-400); RBC 3.79 XMIL (4.2-5.4); RDW 13.5 % (11.5-14.5)
[2019-05-17 07:22] LABS: AGAP 7; BUN 9 mg/dL (8-22); CHLORIDE 102 mmol/L (98-107); COSMO 279; CREATININE 0.5 mg/dL (0.5-0.9); ESTIMATED GFR > 60; GLUCOSE 142 mg/dL (70-104); POTASSIUM 2.8 mmol/L (3.5-5.1); SODIUM 139 mmol/L (136-145); TCO2 30 mmol/L (25-35)
[2019-05-17] MEDS: ULTRAM PO PRN (08:21)
[2019-05-17] MEDS: NEURONTIN PO SCH ×2 (09:27→13:12)
[2019-05-17] MEDS: FLEXERIL PO SCH (09:27)
[2019-05-17] MEDS: ZITHROMAX PO SCH (09:27)
[2019-05-17] MEDS: KLONOPIN PO SCH (09:27)
[2019-05-17] MEDS: ELAVIL PO SCH (09:27)
[2019-05-17] MEDS: LOVENOX SUBQ SCH (09:27)
[2019-05-17] MEDS: ZOLOFT PO SCH (09:27)
[2019-05-17] MEDS ORDERED: POTASSIUM CHLORIDE 60 MEQ in NS 500 ML IV SCH (11:30)
[2019-05-17 14:54] VITALS: BP 177/72
--- NOTE | 2019-05-17 15:13 | DISCHARGE SUMMARY ---
ADMISSION DATE: 05/15/2019 DISCHARGE DATE: 05/17/2019 DISCHARGE DIAGNOSES: 1. Acute respiratory failure secondary to right middle lobe pneumonia and chronic obstructive pulmonary disease exacerbation. 2. Hypertension. 3. Anxiety and depression disorder. 4. Chronic back pain. PROCEDURES: 1. Chest x-ray done on admission showed right middle lobe atelectasis versus pneumonia. 2. Chest CT showed there is evidence of prior granulomatosis infection with scarring versus small infiltrate in the right middle lobe inferiorly and mild associated bronchiectasis. HOSPITAL COURSE: This is a 78-year-old, female with a past medical history of gastroesophageal reflux disease and hypertension who has been a smoker for at least 45 years and currently continues to smoke a half a pack per day of cigarettes, who presented to the emergency department complaining of shortness of breath. She reports a sporadic cough that is compatible with a smoker's cough. She said that during the last couple of days, she becomes very short of breath with some chest discomfort. At this point, the patient has been kept in the hospital for 2 days with IV antibiotics. She was placed on breathing treatment and also antibiotics as well. Patient reports feeling fine right now. The patient qualifies for home oxygen, most likely secondary to the subclinical COPD. At this time, the patient is going to be discharged in stable condition. DISCHARGE PHYSICAL EXAMINATION: Vital Signs: Temperature 98.5 degrees, heart rate 76, respiratory rate 17, blood pressure 162/74, O2 saturation 93% on 3 L nasal cannula. General Examination: This is a 78-year-old, female lying in bed, in no acute distress. Cardiovascular Examination: S1 and S2 heard. No murmurs, gallops, or rubs. Regular rate and rhythm. Respiratory Examination: Decreased breath sounds globally with very minimal wheezing in both pulmonary bases. Patient is not using any accessory muscles or having work of breathing. Abdomen: Soft, nontender to palpation. Bowel sounds present. No organomegaly. Extremities: No clubbing, cyanosis, or edema. Peripheral pulses present in both legs. Neurological Examination: The patient is alert and oriented x3. Moves 4 extremities. DISCHARGE DISPOSITION: Home to self-care. LIST OF MEDICATIONS: 1. Levofloxacin 750 mg 1 tablet p.o. daily for 10 days. 2. Combivent Respimat 1 inhalation every 4 hours as needed for shortness of breath. 3. Clarinex 5 mg 1 tablet p.o. daily. 4. Elavil 25 mg 1 tablet p.o. b.i.d. 5. Atenolol 25 mg p.o. daily as needed. 6. Flexeril 10 mg 1 tablet p.o. daily. 7. Klonopin 1 mg 1 tablet p.o. b.i.d. 8. Zoloft 100 mg 1 tablet p.o. daily. 9. Phenergan 25 mg p.o. q.6 hours as needed for nausea. 10. Ambien 10 mg 1 tablet p.o. daily. 11. Tramadol 50 mg p.o. every 6 hours as needed for pain. 12. Gabapentin 600 mg 1 tablet p.o. 4 times per day. cc: Mohsen France MD
[2019-05-17] MEDS ORDERED: KLOR-CON PO ONE (16:26)
== END 2019-05-17 17:36 | disposition home or self-care (01) | DRG 177 ==
LOC: ED 14:03 → EDIPHOLD 17:59 → SUATTDRO 17:59 → 3N 20:53
PROVIDERS: ATTEND Internal Medicine